=== PATIENT | female | born 1970 | race Caucasian/White ===

== ENCOUNTER 2018-01-23 00:05 | Emergency (ER) | payer OTHER ==
[~2018-01-23] VITALS: Ht 170.2 cm; Wt 137.4 kg
[~2018-01-23 00:05] MED LIST: ADVAIR 250-501 EACH IH; AMOXICILLIN125 MG PO; AMOXICILLIN875 MG PO; AUGMENTIN 875875 M1 PO; CELEXA20 MG PO; CHERATUSSIN DA480 ML PO; CLARITIN10 MG PO; DARVOCET-N 1001 EACH PO; FLONASE16 GM NS; IBUPROFEN 800800 M1 PO; MEDROL DOSPAK21 TA1 PO; MUCINEX D TABL1 EAC1 PO; NORCO 5-325 TA1 EACH PO; PHENERGAN 25 MG25 MG PO; PHENERGAN25 MG RE; PREDNISONE 20 M20 M1 PO; PRINIVIL20 MG PO; PROVENTIL; TESSALON200 MG PO; ZPAK PO
[2018-01-23] MEDS ORDERED: HYDROCODONE-AP1 EAC6 PO (00:55)
[2018-01-23] MEDS ORDERED: NABUMETONE 750750 M1 PO (00:55)
[2018-01-23 01:34] VITALS: BP 133/80
== END 2018-01-23 01:35 | disposition home or self-care (01) ==
LOC: M.ERS 00:05
DX: S52.502A Unspecified fracture of the lower end of left radius, initial encounter for closed fracture (principal); W10.9XXA Fall (on) (from) unspecified stairs and steps, initial encounter; Y93.89 Activity, other specified; Y92.89 Other specified places as the place of occurrence of the external cause; Y99.8 Other external cause status; J45.909 Unspecified asthma, uncomplicated; Z90.710 Acquired absence of both cervix and uterus

== ENCOUNTER 2018-05-18 01:18 | Emergency (ER) | payer OTHER ==
[~2018-05-18] VITALS: Ht 170.2 cm; Wt 139.3 kg
[~2018-05-18 01:18] MED LIST changes: +HYDROCODONE-AP1 EAC6 PO; +NABUMETONE 750750 M1 PO
[2018-05-18 02:45] LABS: ABSOLUTE BASOPHILS 0.1 thou/uL (0.0-0.2); ABSOLUTE LYMPHOCYTES 1.5 thou/uL (0.8-5.3); ABSOLUTE MONOCYTES 0.6 thou/uL (0.0-1.2); BASOPHILS 0.5 %; EOSINOPHILS 0.3 %; HEMATOCRIT 40.4 % (37.0-47.0); HEMOGLOBIN 13.3 gm/dL (12.0-15.0); MCH 29.1 pg (26.0-34.0); MCHC 33.1 g/dL (28.0-37.0); MONOCYTES 5.1 %; MPV 8.6 fl. (7.2-11.1); NUCLEATED RBCS 0 /100WBC; PLATELET COUNT* 298 thou/uL (150-400); POLYS 82.1 %; RBC 4.59 mil/uL (4.20-5.00); RDW-CV 13.6 % (10.5-14.5); WBC 12.2 thou/uL (4.0-11.0)
[2018-05-18 02:54] LABS: INFLUENZA A ANTIGEN None Detected (None Detect); INFLUENZA B ANTIGEN None Detected (None Detect)
[2018-05-18 02:55] LABS: POTASSIUM 3.6 mmol/L (3.5-5.1)
[2018-05-18 03:00] LABS: ALBUMIN 3.7 g/dL (3.4-5.0); TOTAL BILIRUBIN 0.6 mg/dL (<0.1-1.0); TOTAL PROTEIN 7.7 g/dL (6.4-8.2)
[2018-05-18] MEDS ORDERED: PROMETHAZINE-C473 ML PO (03:44)
[2018-05-18 04:00] VITALS: BP 136/90
== END 2018-05-18 04:01 | disposition home or self-care (01) ==
LOC: M.ERS 01:18
PROVIDERS: Emergency Medicine
DX: J06.9 Acute upper respiratory infection, unspecified (principal); J45.909 Unspecified asthma, uncomplicated; Z90.49 Acquired absence of other specified parts of digestive tract; Z90.710 Acquired absence of both cervix and uterus

== ENCOUNTER 2020-07-24 16:35 | Emergency (ER) | payer OTHER ==
[~2020-07-24] VITALS: Ht 170.2 cm; Wt 147.4 kg
[~2020-07-24 16:35] MED LIST changes: +PROMETHAZINE-C473 ML PO
[2020-07-24] MEDS ORDERED: LISINOPRIL-HCT1 EACH PO (16:45)
[2020-07-24] MEDS ORDERED: APAP W/CODEINE1 TA2 PO (17:40)
[2020-07-24 17:59] VITALS: BP 151/91
== END 2020-07-24 18:00 | disposition home or self-care (01) ==
LOC: M.ERS 16:35
DX: M25.562 Pain in left knee (principal); M25.571 Pain in right ankle and joints of right foot; J45.909 Unspecified asthma, uncomplicated; Z90.710 Acquired absence of both cervix and uterus

== ENCOUNTER 2021-06-01 13:53 | Emergency (ER) | payer OTHER ==
[~2021-06-01] VITALS: Ht 167.6 cm; Wt 149.7 kg
[~2021-06-01 13:53] MED LIST changes: +APAP W/CODEINE1 TA2 PO; +LISINOPRIL-HCT1 EACH PO
[2021-06-01 14:36] LABS: INFLUENZA A ANTIGEN Negative (Negative); INFLUENZA B ANTIGEN Negative (Negative)
[2021-06-01] MEDS ORDERED: PROAIR HFA8.5 GM INH (17:36)
[2021-06-01] MEDS ORDERED: TESSALON PERLE100 MG PO (17:36)
[2021-06-01 17:45] VITALS: BP 153/93
== END 2021-06-01 17:45 | disposition home or self-care (01) ==
LOC: M.ERS 13:53
PROVIDERS: Physician Assistant
DX: J02.9 Acute pharyngitis, unspecified (principal); Z20.822 Contact with and (suspected) exposure to COVID-19; J45.909 Unspecified asthma, uncomplicated; I10 Essential (primary) hypertension; Z90.49 Acquired absence of other specified parts of digestive tract; Z90.89 Acquired absence of other organs; Z90.710 Acquired absence of both cervix and uterus; Z98.890 Other specified postprocedural states; Z79.899 Other long term (current) drug therapy

== ENCOUNTER 2021-06-15 10:55 | Emergency (ER) | payer OTHER ==
[~2021-06-15] VITALS: Ht 167.6 cm; Wt 149.2 kg
[~2021-06-15 10:55] MED LIST changes: +PROAIR HFA8.5 GM INH; +TESSALON PERLE100 MG PO
[2021-06-15 12:20] LABS: ABSOLUTE BASOPHILS 0.1 thou/uL (0.0-0.2); ABSOLUTE EOSINOPHILS 0.2 thou/uL (0.0-0.7); ABSOLUTE LYMPHOCYTES 2.6 thou/uL (0.8-5.3); ABSOLUTE MONOCYTES 0.7 thou/uL (0.0-1.2); ABSOLUTE NEUTROPHILS 8.3 thou/uL (1.6-8.1); EOSINOPHILS 1.4 %; HEMATOCRIT 40.6 % (37.0-47.0); HEMOGLOBIN 13.5 gm/dL (12.0-15.0); LYMPHOCYTES 21.7 %; MCH 28.2 pg (26.0-34.0); MCHC 33.2 g/dL (28.0-37.0); MCV 85.1 fL (80.0-100.0); MONOCYTES 5.6 %; MPV 7.6 fl. (7.2-11.1); NUCLEATED RBCS 0 /100WBC; PLATELET COUNT* 349 thou/uL (150-400); POLYS 70.3 %; RBC 4.77 mil/uL (4.20-5.00); RDW-CV 14.2 % (10.5-14.5); WBC 11.8 thou/uL (4.0-11.0)
[2021-06-15 12:28] LABS: CREATININE 0.8 mg/dL (0.6-1.3); POTASSIUM 4.1 mmol/L (3.5-5.1)
[2021-06-15] MEDS ORDERED: TESSALON PERLE100 MG PO (13:06)
[2021-06-15] MEDS ORDERED: MEDROLDOSEPACK PO (13:06)
[2021-06-15 13:17] VITALS: BP 169/99
== END 2021-06-15 13:18 | disposition home or self-care (01) ==
LOC: M.ERS 10:55
PROVIDERS: Physician Assistant
DX: J18.9 Pneumonia, unspecified organism (principal); R06.02 Shortness of breath; J45.909 Unspecified asthma, uncomplicated; I10 Essential (primary) hypertension; Z79.899 Other long term (current) drug therapy; Z90.49 Acquired absence of other specified parts of digestive tract; Z90.89 Acquired absence of other organs; Z90.710 Acquired absence of both cervix and uterus